=== PATIENT | female | born 1980 | race African-American/Black ===

== ENCOUNTER 2024-12-13 18:56 | Emergency (ER) | payer OTHER, MEDICAID ==
[~2024-12-13] VITALS: Ht 160 cm; Wt 65.9 kg
--- NOTE | 2024-12-13 19:39 | ED.PDOC ---
Psychiatric HPI Comments 44 year old female presents to the ED with a chief complaint of suicidal ideation onset today. Patient was brought to ED due to mental health, was found in ER bathroom, with a self inflicted LT wrist laceration, bleeding was controlled. Patient is alert and oriented to self, can answer her name. Patient states "I want to kill myself before my family kills me" she also states "I am lucifer, I want to ." Patient has suicidal ideation and homicidal ideation. Unable to obtain past medical history. Chief Complaint: Mental Health Time Seen by MD: 19:19 Reviewed Notes: Medications, Allergies Information Source: Patient, Relative Mode of Arrival: Ambulatory Severity of Mental Status: Moderate Severity of Symptoms: Moderate Timing: Hours Duration: Since onset Prehospital treatment: None Presents with: Bizarre Behavior, Suicidal Ideation, Homicidal Ideation Attempt: Laceration Location: Left Location of pain or injury: Wrist Past Medical History PAST MEDICAL HISTORY: Unknown Surgical History: Unknown [employer] History: Unknown Family History Family History: Unknown Social History Smoker: Unknown Alcohol: Unknown Drugs: Unknown Lives In: Home Constitutional: denies: chills, diaphoresis, fatigue, fever, malaise, sweats, weakness, others EENTM: denies: blurred vision, double vision, ear bleeding, ear discharge, ear drainage, ear pain, ear ringing, eye pain, eye redness, hearing loss, mouth pain, mouth swelling, nasal discharge, nose bleeding, nose congestion, nose pain, photophobia, tearing, throat pain, throat swelling, voice changes, others Respiratory: denies: cough, hemoptysis, orthopnea, SOB at rest, shortness of breath, SOB with excertion, stridor, wheezing, others Cardiovascular: denies: chest pain, dizzy spells, diaphoresis, Dyspnea on exert ion, edema, irregular heart beat, left arm pain, lightheadedness, palpitations, PND, syncope, others Gastrointestinal: denies: abdomen distended, abdominal pain, blood streaked bowels, constipated, diarrhea, dysphagia, difficulty swallowing, hematemesis, melena, nausea, poor appetite, poor fluid intake, rectal bleeding, rectal pain, vomiting, others Genitourinary: denies: abnormal vagina bleeding, burning, dyspareunia, dysuria, flank pain, frequency, hematuria, incontinence, pain, , vagina discharge, urgency, others Neurological: denies: dizziness, fainting, headache, left sided numbness, left sided weakness, numbness, paresthesia, pre-existing deficit, right sided numbness, right sided weakness, seizure, speech problems, tingling, tremors, weakness, others Musculoskeletal: denies: back pain, gout, joint pain, joint swelling, muscle pain, muscle stiffness, neck pain, others Integumetry: denies: bruises, change in color, change in hair/nails, dryness, laceration, lesions, lumps, rash, wounds, others Allergic/Immunocompromised: denies: Difficulty Healing, Frequent Infections, Hives, Itching, others Hematologic/Lymphatic: denies: anemia, blood clots, easy bleeding, easy bruising, swollen glands, others Endocrine: denies: excessive hunger, excessive sweating, excessive thirst, excessive urination, flushing, intolerance to cold, intolerance to heat, unexplained weight gain, unexplained weight loss, others Psychiatric: reports: suicidal; denies: anxiety, bipolar disorder, depression, hopeless, panic disorder, schizophrenia, sleepless, others All Other Systems: Reviewed and Negative Physical Exam General Appearance: Moderate Distress, Obese HEENT: Normal ENT Inspection, Pharynx Normal, TMs Normal Neck: Full Range of Motion, Non-Tender, Normal, Normal Inspection Respiratory: Chest Non-Tender, Lungs Clear, No Accessory Muscle Use, No Respiratory Distress, Normal Breath Sounds Cardiovascular: No Edema, No JVD, No Murmur, No Gallop, Normal Peripheral Pulses, Regular Rate/Rhythm Breast Exam: Deferred Gastrointestinal: No Organomegaly, Non Tender, No Pulsatile Mass, Normal Bowel Sounds, Soft Genitalia: Deferred Pelvic: Deferred Rectal: Deferred Extremities: Other (abrasions to left wrist, dermis intact) Musculoskeletal : Apperance: Normal Neurologic: Other (agitated affect, + delusional (I'm the devil), noncompliant ) Cerebellar Function: Normal Reflexes: Normal Skin: Wounds (abrasions to left wrist, dermis intact), Other Lymphatic: No Adenopathy Was a procedure done? Was a procedure done?: No Psych Differential Dx Psych. Differential Dx: Anxiety, Bipolar Disorder, Depression, Hopeless, Panic Disorder, Schizoprenia, Suicidal, Other OD Differential Dx: Alcohol Abuse Suicidal Differential Dx: Alcohol Abuse, Laceration, Personality Disorder, Schizoprenia, Substance Abuse Intoxication Differential Dx: Alcohol Withdraw Syndrome, Encephalopathy X-Ray, Labs, Meds, VS Vital Signs Date Time Temp Pulse Resp B/P (MAP) Pulse Ox O2 Delivery O2 Flow Rate FiO2 12/13/24 19:21 99.1 140 20 132/106 (115) 97 99.1 Lab Test 12/13/24 19:39 Range/Units White Blood Count 6.9 4.4-10.8 10^3/uL Red Blood Count 4.75 4.0-5.20 10^6/uL Hemoglobin 12.0 L 12.2-16.2 g/dL Hematocrit 36.5 36.0-46.0 % Mean Corpuscular Volume 76.8 L 80.0-100.0 fL Mean Corpuscular Hemoglobin 25.3 L 28.0-32.0 pg Mean Corpuscular Hemoglobin Concent 32.9 32.0-36.0 g/dL Red Cell Distribution Width 18.2 H 11.8-14.3 % Platelet Count 216 140-450 10^3/uL Mean Platelet Volume 8.0 6.9-10.8 fL Neutrophils (%) (Auto) 77.1 37.0-80.0 % Lymphocytes (%) (Auto) 9.7 L 10.0-50.0 % Monocytes (%) (Auto) 12.6 H 0.0-12.0 % Eosinophils (%) (Auto) 0.4 0.0-7.0 % Basophils (%) (Auto) 0.2 0.0-2.0 % Neutrophils # (Auto) 5.3 1.6-8.6 10 ^3/uL Lymphocytes # (Auto) 0.7 0.4-5.4 10 ^3/uL Monocytes # (Auto) 0.9 0-1.3 10 ^3/uL Eosinophils # (Auto) 0 0-0.8 10 ^3/uL Basophils # (Auto) 0 0-0.2 10 ^3/uL Nucleated Red Blood Cells 0.1 % Sodium Level 132 L 136-145 mmol/L Potassium Level 2.6 L 3.5-5.1 mmol/L Chloride Level 95 L 98-107 mmol/L Carbon Dioxide Level 22 20-31 mmol/L Anion Gap 15 5-15 Blood Urea Nitrogen 34 H 9-23 mg/dL Creatinine 1.28 H 0.550-1.02 mg/dL Glomerular Filtration Rate Calc 53 >90 mL/min BUN/Creatinine Ratio 26.6 H 10.0-20.0 Serum Glucose 233 H 74-106 mg/dL Calcium Level 9.9 8.7-10.4 mg/dL Total Bilirubin 0.8 0.2-1.0 mg/dL Aspartate Amino Transferase (AST) 110 H 13-40 U/L Alanine Aminotransferase (ALT) 139 H 7-40 U/L Alkaline Phosphatase 102 46-116 U/L Total Protein 8.8 H 5.7-8.2 g/dL Albumin 4.6 3.2-4.8 g/dL Salicylates Level < 3.0 -30 mg/dL Acetaminophen Level < 2.0 L 10.0-20.0 UG/ML Plasma/Serum Blood Alcohol 3.0 <10 mg/dL Current Medications Medications (Trade) Dose Ordered Sig/Shyanne Route Start Time Stop Time Status Last Admin Haloperidol Lactate (Haldol) 10 mg ONCE ONCE IM 12/13/24 19:30 12/13/24 19:31 DC 12/13/24 20:03 Lorazepam (Ativan Inj) 1 mg ONCE ONCE IM 12/13/24 19:30 12/13/24 19:31 DC 12/13/24 20:04 Time of 1ST Reevaluation: 19:49 Reevaluation 1ST: Unchanged Time of 2ND Reevaluation: 22:19 Reevaluation 2ND: Unchanged Patient Education/Counseling: Diagnosis, Treatment, Prognosis Family Education/Counseling: Diagnosis, Treatment, Prognosis Additional Information The following tests were ordered, and results were reviewed by me: CBC, CMP, DRUG SCREEN, ACETAMINOPHEN, SALICYLATES, BLOOD ALCOHOL I discussed treatment and results with medical personnel and: Patient Comprehensive systems review obtained and negative except for what is stated in the HPI. Departure 1 Departure Time of Disposition: 22:20 Impression: Primary Impression: Self-harm Additional Impressions: Abrasion of left wrist Delusional disorder, multiple episodes currently in acute episode [facility]: [facility] Condition: Guarded Comments Self-Inflicted Left Wrist Injury with Acute Psychosis Chief Complaint: Self-inflicted left wrist injury with delusional behavior History of Present Illness: 44-year-old female with known psychiatric history presents to the ED with active delusions, stating she is 'the devil, ' and self-inflicted injury to her left wrist. Patient attempted self-harm by cutting her left wrist. The injury appears superficial with only abrasions noted and intact dermis. No active bleeding was observed at the time of examination. Review of Systems: Psychiatric: Positive for acute delusions Integumentary: Left wrist abrasions Otherwise deferred due to patient's acute psychiatric condition Physical Exam: General: Patient with acute psychiatric symptoms Skin: Left wrist with superficial abrasions, dermis intact, no active bleeding Psychiatric: Actively delusional, expressing beliefs of being 'the devil' Lab Results: Blood Glucose: 39 mg/dL (Critical Low) Potassium: 2.6 mEq/L (Critical Low) Repeat blood glucose pending Imaging and Other Relevant Results: No imaging studies documented Medical Decision Making: Summary Statement: 44-year-old female with psychiatric history presenting with self-inflicted wrist injury, active delusions, hypoglycemia, and hypokalemia requiring medical stabilization and psychiatric evaluation. Problem List: 1. Acute psychosis with delusions 2. Self-inflicted wrist injury 3. Hypoglycemia 4. Hypokalemia Differential Diagnosis: 1. Delusional disorder 2. Schizophrenia 3. Severe depression with psychotic features 4. Substance-induced psychosis 5. Metabolic encephalopathy due to hypoglycemia ED Course: Patient received wound cleaning and dressing to left wrist. Oral potassium replacement administered for hypokalemia. Blood glucose monitoring initiated. Patient medically stabilized during ED observation. Assessment and Plan: 1. Acute Psychosis with Self-Harm: - Patient medically cleared - Psychiatric evaluation ordered - Plan for possible inpatient psychiatric admission 2. Left Wrist Abrasions: - Wound cleaned and dressed - No sutures required - No active bleeding 3. Hypoglycemia (Blood glucose 39): - Repeat blood glucose ordered - Monitor and treat as needed 4. Hypokalemia (K+ 2.6): - Oral potassium replacement given - Monitor electrolytes Billing Information: ICD-10: F22 - Delusional disorders ICD-10: S61.511A - Abrasion of wrist, left initial encounter ICD-10: E87.6 - Hypokalemia ICD-10: E16.2 - Hypoglycemia, unspecified Critical Care Note Critical Care Time?: No Stability Stability form required: No I personally scribed for INDU HAMMOND MD ([email or web address]) on 12/13/24 at 19:39. Electronically submitted by Rebecca Zapien ([email or web address]). I personally scribed for INDU HAMMOND MD ([email or web address]) on 12/13/24 at 19:51. Electronically submitted by Rebecca Zapien ([email or web address]). I personally scribed for INDU HAMMOND MD ([email or web address]) on 12/13/24 at 19:52. Electronically submitted by Rebecca Zapien ([email or web address]). INDU HAMMOND MD Dec 13, 2024 19:39
[2024-12-13 19:54] LABS: Basophils # (auto) 0 10 ^3/uL (0-0.2); Basophils % (auto) 0.2 % (0.0-2.0); Eosinophils # (auto) 0 10 ^3/uL (0-0.8); Mean Corpuscular Hemoglobin 25.3 pg (28.0-32.0); Monocytes # (auto) 0.9 10 ^3/uL (0-1.3); Neutrophils # (auto) 5.3 10 ^3/uL (1.6-8.6); Nucleated Red Blood Cells % 0.1 %
[2024-12-13 19:57] LABS: Eosinophils % (auto) 0.4 % (0.0-7.0); Hematocrit 36.5 % (36.0-46.0); Lymphocytes # (auto) 0.7 10 ^3/uL (0.4-5.4); Lymphocytes % (auto) 9.7 % (10.0-50.0); Mean Corpuscular Hgb Conc. 32.9 g/dL (32.0-36.0); Mean Corpuscular Volume 76.8 fL (80.0-100.0); Monocytes % (auto) 12.6 % (0.0-12.0); Neutrophils % (auto) 77.1 % (37.0-80.0); Platelet Count (auto) 216 10^3/uL (140-450); Red Blood Cells 4.75 10^6/uL (4.0-5.20); Red Cell Distribution Width 18.2 % (11.8-14.3); White Blood Cell 6.9 10^3/uL (4.4-10.8)
[2024-12-13 20:00] VITALS: PULSE 143; RESP 20; O2SAT 96
[2024-12-13] MEDS: HALOPERIDOL LACTATE 5 MG/ML INJ VIAL IM ONE (20:03)
[2024-12-13] MEDS: LORazepam 2MG/ML-1ML VIAL IM ONE (20:04)
[2024-12-13 20:14] LABS: Albumin 4.6 g/dL (3.2-4.8); Alkaline Phosphatase 102 U/L (46-116); Anion Gap 15 (5-15); BUN/Creatinine Ratio 26.6 (10.0-20.0); Bilirubin, Total 0.8 mg/dL (0.2-1.0); Calcium 9.9 mg/dL (8.7-10.4); Carbon Dioxide 22 mmol/L (20-31)
[2024-12-13 20:15] LABS: Alanine Aminotransferase 139 U/L (7-40); Aspartate Aminotransferase 110 U/L (13-40); Blood Urea Nitrogen 34 mg/dL (9-23); Chloride 95 mmol/L (98-107); Glucose 233 mg/dL (74-106); Potassium 2.6 mmol/L (3.5-5.1); Sodium 132 mmol/L (136-145); Total Protein 8.8 g/dL (5.7-8.2)
[2024-12-13] MEDS: POTASSIUM CHL 20 Meq TABLET PO ONE (20:45)
[2024-12-13 21:19] LABS: Acetaminophen < 2.0 UG/ML (10.0-20.0); Salicylate < 3.0 mg/dL (-30)
[2024-12-13 22:56] LABS: Anion Gap 13 (5-15); Calcium 9.9 mg/dL (8.7-10.4); Carbon Dioxide 25 mmol/L (20-31)
[2024-12-13 23:01] LABS: BUN/Creatinine Ratio 28.3 (10.0-20.0)
[2024-12-13 23:11] LABS: Blood Urea Nitrogen 34 mg/dL (9-23); Chloride 96 mmol/L (98-107); Glucose 152 mg/dL (74-106); Potassium 2.7 mmol/L (3.5-5.1); Sodium 134 mmol/L (136-145)
--- NOTE | 2024-12-14 01:13 | RESUS ---
CODE ASSIST ASSESSSMENT Initial Information Code Assist Date: Dec 13, 2024 Code Assist Time: 19:18 Location of Arrest: ER Room # ER Bathroom, transfered to ER Triage Provider Name Dr. Matthew Bloom Notified: 19:23 Crash Cart Opened and Supplies: No Situation Situation comment: was found in ER bathroom, with a self inflicted LT wrist laceration, bleeding Rapid response was found. Background Background: chief complaint of suicidal ideation onset today. Patient was brought to ED due to mental health, was found in ER bathroom, with a self inflicted LT wrist laceration, bleeding was controlled. Patient is alert and oriented to self, can answer her name. Patient states "I want to kill myself before my family kills me" she also states "I am lucifer, I want to ." Patient has suicidal ideation and homicidal ideation. Unable to obtain past medical history. Assessment Temperature (Fahrenheit): 99.1 Blood Pressure Systolic: 132 Blood Pressure Diastolic: 106 Respiratory Rate: 20 O2 Sat by Pulse Oximetry: 96 Recommendations/Interventions Procedures: CMP, CBC, EKG Other Interventions Haldol and ativan as ordered Outcome Outcome: Problem Resolved Team Members Team Members Dr. Matthew Hickman, STRATEGIC MARKETING SPECIALIST; Hay Durant EMT; Elizabeth HUFFMAN; Elma Fregoso RN, ELMA GAMBLE Dec 14, 2024 01:13
[2024-12-14] MEDS: SODIUM CHLORIDE 0.9% 500 ML IV ONE (03:15)
[2024-12-14] MEDS ORDERED: POTASSIUM CHLORIDE 40 MEQ, LIDOCAINE 1% (LOCAL ANESTH.) 4 ML in SODIUM CHL 0.9% 250 ML IV ONE (03:15)
--- NOTE | 2024-12-14 04:39 | DVHINCON2 ---
Date of Service if different f: Dec 14, 2024 Time of Service: 04:37 Consult Consult Note PSYCHIATRY ED NEW CONSULT HPI: 44 yo F pt with unclear PPH presents to ED BIB self for safety, psychiatric stabilization, and possible med initiation/optimization in setting of psychosis and SI/SIB. Psychiatry consulted for safety evaluation and recommendations in context of current presentation Per pt, reports over past several days experiencing worsening depressed mood, hopelessness/helplessness, negative thoughts, isolation, loss of interest, poor sleep/appetite, low self worth, and anxiety symptoms to include excessive rumination, restlessness, racing/intrusive thoughts, paranoia of being hurt by family members - "i want to kill myself before my family kills me", feeling tensed, in addition to CAH to hurt self. Pt also identifies self as "devil" who should be killed. Also intermittent SI that are worsening over past several day s, in ED BR pt w/self-inflicted nail laceration to L wrist. Reports primary stress as recent anniversary of her son's passing last week Pt currently does not have active outpt MH services established at this time although has sought outpt MH services in recent past. Currently not on any psychotropic agents, no prior psych med trial Denies ETOH, THC or IDU prior to admission although does have some hx of THC/ETOH dependency, last used several weeks ago Never , one living child (son years ago around this time), unemployed?, lives by self, some support system noted (immediate family) Unknown trauma hx. Denies FH of psych hospitalizations, suicide attempts, or completed suicides No acute medical/chronic pain issues, hx of seizures/TBI, or recent head injuries, NKDA Some hx of SI, remote hx of SIB via cutting, denies hx of SA/PSG or prior psych hospitalizations/5150 holds. Denies history of violence, unprovoked aggression, or assaultive behaviors. Denies any legal problems Currently endorses passive SI and CAH. Does not have access to firearms. MSE: General Appearance/Behavior: Alert and somewhat awake; appears stated age, overweight, fair grooming and hygiene; calm and cooperative, fair eye contact, no PMA/PMR Speech: coherent, slow, monotone, soft Thought Process: linear, bit illogical, and concrete Thought Content: Abnormal Thoughts and Perceptions: denies dissociative symptoms Homicidality / Violent Thoughts: adamantly denies HI Suicidality: +SI Hallucinations: +CAH Delusions: +paranoia, persecutory delusions Obsessions /compulsions: None Judgment and Insight: poor/marginal to marginal Mood & Affect: "depressed" with mood-congruent, restricted/guarded Orientation: oriented to person, place Attention/Concentration: appears intact Cognition: grossly intact Assessment: 44 yo F pt with unclear PPH presents to ED BIB self for safety, psychiatric stab ilization, and possible med initiation/optimization in setting of psychosis and SI/SIB Pt is currently expressing some SI + CAH/paranoia in setting of anniversary of son (see hpi). Limited protective factors presently. Not on any psychotropics which maybe contributing to current symptoms. No outpt MH services at present. Pt agrees to talk with staff instead of acting on any suicidal feelings while in ED (engaged in SIB several hours prior). Pt medically cleared in ED Hence, pts acute safety risk is moderate and is appropriate for inpatient psychiatric admission for safety, psychiatric stabilization, and possible medication initiation/optimization. Pt willing to transfer to inpt psych facility voluntarily but recommend 5150 hold for DTS as pt p/w poor judgement and marginal insight Primary Diagnosis: Psychotic disorder unspecified. R/o MDD, moderate/severe, w/PF Recommend 5150 DTS and transfer to inpt psych facility for higher level of care per pts request 1:1 sitter is recommended Recommend starting Olanzapine 5 mg bid - first dose now Risks/benefits/alternative treatments discussed, informed consent provided by pt Reconsult telepsych services if pt requests to be discharged from ED prior to transfer/upon hold expiration Pt verbalized understanding and is receptive to above tx plan This case was discussed with ED nurse/provider and all parties in agreement with above tx plan Som Marcum MD Plan discussed with: Patient SOM MARCUM MD Dec 14, 2024 04:39
[2024-12-14] MEDS: POTASSIUM CHL 20MEQ/50ML 50 ML IV SCH (05:14)
[2024-12-14] MEDS: SODIUM CHL 0.9% 100 ML IV SCH (05:15)
[2024-12-14] MEDS: POTASSIUM EFFERVESENT TAB 25 MEQ PO ONE (11:07)
[2024-12-14] MEDS: OLANZapine 5 MG TAB PO ONE (11:08)
[2024-12-14 11:31] LABS: Opiate Scree,Urine Neg (NEGATIVE)
[2024-12-14 11:32] LABS: Amphetamine Screen, Urine Neg (NEGATIVE); Barbiturate Scree,Urine Neg (NEGATIVE); Benzodiazephine Screen, Urine Neg (NEGATIVE); Cannabinoid Screen, Urine Neg (NEGATIVE); Cocaine Screen, Urine Neg (NEGATIVE); Phencyclidine Screen, Urine Neg (NEGATIVE)
[2024-12-14 12:10] LABS: Alkaline Phosphatase 88 U/L (46-116); Anion Gap 11 (5-15); BUN/Creatinine Ratio 30.3 (10.0-20.0); Bilirubin, Total 0.5 mg/dL (0.2-1.0); Calcium 9.2 mg/dL (8.7-10.4); Carbon Dioxide 24 mmol/L (20-31); Chloride 103 mmol/L (98-107); Sodium 138 mmol/L (136-145); Total Protein 7.6 g/dL (5.7-8.2)
[2024-12-14 12:19] LABS: Alanine Aminotransferase 143 U/L (7-40); Aspartate Aminotransferase 123 U/L (13-40); Blood Urea Nitrogen 27 mg/dL (9-23); Glucose 134 mg/dL (74-106); Potassium 3.2 mmol/L (3.5-5.1)
[2024-12-14 14:19] LABS: Albumin 3.8 g/dL (3.2-4.8); Alkaline Phosphatase 82 U/L (46-116); Anion Gap 10 (5-15); BUN/Creatinine Ratio 29.5 (10.0-20.0); Bilirubin, Total 0.4 mg/dL (0.2-1.0); Carbon Dioxide 23 mmol/L (20-31); Chloride 104 mmol/L (98-107); Potassium 3.7 mmol/L (3.5-5.1); Sodium 137 mmol/L (136-145); Total Protein 7.1 g/dL (5.7-8.2)
[2024-12-14 14:24] LABS: Alanine Aminotransferase 122 U/L (7-40); Aspartate Aminotransferase 115 U/L (13-40); Blood Urea Nitrogen 26 mg/dL (9-23); Glucose 226 mg/dL (74-106)
[2024-12-14 19:43] VITALS: PULSE 86; RESP 16; O2SAT 98
[2024-12-14 20:59] VITALS: BP 104/66; PULSE 92; RESP 15; TEMP 98; O2SAT 97
== END 2024-12-14 21:30 | disposition short-term general hospital (02) ==
LOC: ER 18:56
DX: F22 Delusional disorders (principal); S60.812A Abrasion of left wrist, initial encounter; R45.851 Suicidal ideations; X58.XXXA Exposure to other specified factors, initial encounter; Y93.89 Activity, other specified; Y92.89 Other specified places as the place of occurrence of the external cause; Y99.8 Other external cause status
CPT/HCPCS: 36415; 80048; 80053; 80307; 80320; 80329; 81025; 85025; 96361; 96365; 96366; 96372; 99285; J1630; J2003; J2060; J3480; J7040; J7050